=== PATIENT | female | born 1965 | race Caucasian/White ===

== ENCOUNTER → 2019-12-26 | Outpatient (CLI) | payer SELFPAY ==
[~2019-12-26] MED LIST: ASCO100031 PO; CALC1CAP4 PO; CRAN400C PO; CRAN500C3 PO; FISH1CAP49 PO; GLUC-145 PO; MEDR150D9 SQ; OMEP20TA25 PO
== END | disposition home or self-care (01) ==
LOC: RAH 07:49
PROVIDERS: ATTEND Internal Medicine Critical Care Medicine
DX: E04.2 Nontoxic multinodular goiter (principal)
CPT/HCPCS: 76536